=== PATIENT | male | born 1980 | race African-American/Black ===

== ENCOUNTER 2020-07-26 06:49 | Emergency (ER) | payer OTHER ==
[2020-07-26 06:55] VITALS: RESP 32
[2020-07-26] MEDS ORDERED: methylPREDNISolone SOD SUCCI 125 MG/2 ML VIAL IM STA (07:01)
[2020-07-26] MEDS ORDERED: IPRATROPIUM-ALBUTEROL 3 ML NEB INHALATION STA (07:01)
--- NOTE | 2020-07-26 07:06 | ED ---
General Adult HPI - General Chief complaint: Shortness of Breath Stated complaint: NELSON Time Seen by Provider: 07/26/20 06:58 Source: patient Mode of arrival: ambulatory Limitations: no limitations - History of Present Illness Initial comments: 39-year-old male with a past medical history of asthma presents to the emergency room for a chief complaint of shortness of breath. Patient states she woke up with an asthma exacerbation. States this feels like his normal asthma exacerbations. Patient did not have any breathing treatments at home. Patient denies cough fevers or congestion. Patient does admit to smoking but does not have a history of COPD.Patient has no other complaints at this time including chest pain, abdominal pain, nausea or vomiting, headache, or visual changes. - Related Data Previous Rx's Medication Instructions Recorded Loratadine [Claritin] 10 mg PO DAILY #20 tab 07/26/20 RX: Albuterol Inhaler [Ventolin 2 puff INHALATION RT-QID PRN #1 07/26/20 Hfa Inhaler] inhaler RX: predniSONE 50 mg PO DAILY #5 tablet 07/26/20 Allergies Allergy/AdvReac Type Severity Reaction Status Date / Time Iodinated Contrast Media Allergy Anaphylaxis Verified 07/26/20 07:49 Iodine and Iodide Containing Allergy Anaphylaxis Verified 07/26/20 07:49 Produc shellfish derived [Shellfish] Allergy Anaphylaxis Verified 07/26/20 07:49 Review of Systems ROS Statement: Those systems with pertinent positive or pertinent negative responses have been documented in the HPI. ROS Other: All systems not noted in ROS Statement are negative. Past Medical History Past Medical History: Asthma History of Any Multi-Drug Resistant Organisms: None Reported Past Surgical History: No Surgical Hx Reported Past Psychological History: No Psychological Hx Reported Smoking Status: Current every day smoker Past Alcohol Use History: Occasional Past Drug Use History: Marijuana General Exam Limitations: no limitations General appearance: alert, in no apparent distress Head exam: Present: atraumatic, normocephalic, normal inspection Eye exam: Present: normal appearance, PERRL, EOMI. Absent: scleral icterus, conjunctival injection, periorbital swelling ENT exam: Present: normal exam Neck exam: Present: normal inspection, full ROM. Absent: tenderness, meningismus, lymphadenopathy Respiratory exam: Present: wheezes (wheezing noted throughout lung [place]). Absent: respiratory distress, rales, rhonchi, stridor Cardiovascular Exam: Present: regular rate, normal rhythm, normal heart sounds. Absent: systolic murmur, diastolic murmur, rubs, gallop, clicks GI/Abdominal exam: Present: soft, normal bowel sounds. Absent: distended, tenderness, guarding, rebound, rigid Neurological exam: Present: alert Course Vital Signs 07/26/20 07/26/20 07/26/20 06:53 07:15 07:28 Pulse Rate 92 88 96 Respiratory 32 H Rate Blood Pressure 186/116 O2 Sat by Pulse 96 Oximetry Medical Decision Making - Medical Decision Making Patient presents for shortness of breath. Patient has a history of asthma and is currently on vacation camping here. He forgot his inhaler at home. On presentation patient does have wheezing and increased respiratory rate. Given his additional history of smoking he was given 2 DuoNeb which did help significantly with his symptoms. His chest x-ray showed peribronchial cuffing consistent with asthma exacerbation. I did recommend workup for patient's hypertension given he has a blood pressure 157/107 on repeat bp. patient refuses this, states that his blood pressure is high because he is anxious and he could not breathe and would prefer to follow up with his primary care doctor. Anthony singer will be given steroids, Claritin, and inhaler sent to the [facility] [place] [facility]. He will return here for any worsening symptoms. Disposition Clinical Impression: Asthma exacerbation, Hypertension Disposition: HOME SELF-CARE Condition: Good Instructions (If sedation given, give patient instructions): Asthma (ED) Additional Instructions: Please take medications as directed. Use inhaler as needed. Follow-up with primary care for asthma and high blood pressure. Return to the emergency room for any worsening symptoms. Prescriptions: Loratadine [Claritin] 10 mg PO DAILY #20 tab RX: predniSONE 50 mg PO DAILY #5 tablet RX: Albuterol Inhaler [Ventolin Hfa Inhaler] 2 puff INHALATION RT-QID PRN #1 inhaler PRN Reason: Shortness Of Breath Is patient prescribed a controlled substance at d/c from ED?: No Referrals: Jose Rock MD [REFERRING] - 1-2 days Time of Disposition: 07:51
[2020-07-26 07:29] VITALS: PULSE 96
--- NOTE | 2020-07-26 07:40 | XR ---
EXAMINATION TYPE: XR chest 2V DATE OF EXAM: 07/26/2020 COMPARISON: NONE HISTORY: History of asthma with shortness of breath. TECHNIQUE: Frontal and lateral views of the chest are obtained. FINDINGS: Hyperinflation with central perihilar peribronchial cuffing. There is no suspicious periphe ral focal air space opacity, pleural effusion, or pneumothorax seen. The cardiac silhouette size is within normal limits. The osseous structures are intact. IMPRESSION: Hyperinflation with central perihilar peribronchial cuffing suggesting small airway dise ase possibly from acute asthma exacerbation. No suspicious peripheral focal infiltrate.
[2020-07-26 07:58] VITALS: BP 152/107; TEMP 97.1
== END 2020-07-26 08:03 | disposition home or self-care (01) ==
LOC: EC 06:49
DX: J45.901 Unspecified asthma with (acute) exacerbation (principal); I10 Essential (primary) hypertension; F17.200 Nicotine dependence, unspecified, uncomplicated; F12.90 Cannabis use, unspecified, uncomplicated; Z79.51 Long term (current) use of inhaled steroids
CPT/HCPCS: 94640; 71046; 99285; 96372; J2930